=== PATIENT | female | born 2000 | race Hispanic/Latino ===

== ENCOUNTER 2023-09-27 03:20 | Emergency (ER) | payer BC ==
[2023-09-27] MEDS ORDERED: predniSONE 20 MG TAB ONE (04:09)
== END 2023-09-27 04:14 | disposition home or self-care (01) ==
LOC: CSHERS 03:20
DX: M53.3 Sacrococcygeal disorders, not elsewhere classified (principal); F17.210 Nicotine dependence, cigarettes, uncomplicated; F17.290 Nicotine dependence, other tobacco product, uncomplicated
CPT/HCPCS: 99283; J7512